=== PATIENT | male | born 1965 | race Caucasian/White ===

== ENCOUNTER 2021-06-02 10:45 | Emergency (ER) | payer OTHER ==
[2021-06-02] MEDS ORDERED: CEPHALEXIN250 MG PO (12:55)
[2021-06-02] MEDS ORDERED: NORCO 5-325 TA1 EACH PO (12:55)
== END 2021-06-02 13:10 | disposition home or self-care (01) ==
LOC: FER 10:45
DX: S81.012A Laceration without foreign body, left knee, initial encounter (principal); Z23 Encounter for immunization; W29.3XXA Contact with powered garden and outdoor hand tools and machinery, initial encounter
CPT/HCPCS: 73564; 90471; 90715